=== PATIENT | male | born 1935 ===

== ENCOUNTER → 2018-05-07 | Outpatient (REF) | payer OTHER ==
[2018-05-07 19:04] LABS: TOTAL PROTEIN 7.3 GM/DL (6.4-8.2)
[2018-05-08 12:04] LABS: ALBUMIN 4.32 GM/DL (3.29-5.55); ALBUMIN % 59.2 % (55.8-66.1); ALPHA-1-GLOBULIN % 3.9 % (2.9-4.9); ALPHA-1-GLOBULINS 0.28 GM/DL (0.17-0.41); ALPHA-2-GLOBULINS 0.72 GM/DL (0.42-0.99); ALPHA-2-GLOBULINS % 9.9 % (7.1-11.8); BETA-1-GLOBULINS 0.43 GM/DL (0.28-0.60); BETA-1-GLOBULINS % 5.9 % (4.7-7.2); BETA-2-GLOBULINS 0.29 GM/DL (0.19-0.55); GAMMA GLOBULIN % 17.1 % (11.1-18.8); GAMMA GLOBULINS 1.25 GM/DL (0.65-1.58)
== END ==
LOC: M LAB REF 17:21
DX: D47.2 Monoclonal gammopathy (principal)
CPT/HCPCS: 84165